=== PATIENT | female | born 1985 | race Two or more races ===

== ENCOUNTER 2023-07-07 16:56 | Emergency (ER) | payer MEDICAID, OTHER ==
[~2023-07-07] VITALS: Ht 170.2 cm; Wt 89.3 kg
[2023-07-07 17:09] VITALS: BP 138/70; TEMP 97.9
[2023-07-07 20:03] LABS: Basophils # (auto) 0 10 ^3/uL (0-0.2); Basophils % (auto) 0.4 % (0.0-2.0); Eosinophils # (auto) 0 10 ^3/uL (0-0.8); Eosinophils % (auto) 0.1 % (0.0-7.0); Hematocrit 47.5 % (36.0-46.0); Hemoglobin 15.3 g/dL (12.2-16.2); Lymphocytes # (auto) 2.2 10 ^3/uL (0.4-5.4); Lymphocytes % (auto) 21.9 % (10.0-50.0); Mean Corpuscular Hemoglobin 27.8 pg (28.0-32.0); Mean Corpuscular Hgb Conc. 32.2 g/dL (32.0-36.0); Mean Corpuscular Volume 86.6 fL (80.0-100.0); Monocytes # (auto) 0.4 10 ^3/uL (0-1.3); Monocytes % (auto) 4.1 % (0.0-12.0); Neutrophils # (auto) 7.3 10 ^3/uL (1.6-8.6); Neutrophils % (auto) 73.5 % (37.0-80.0); Nucleated Red Blood Cells % 0.1 %; Red Blood Cells 5.49 10^6/uL (4.0-5.20); Red Cell Distribution Width 17.3 % (11.8-14.3)
[2023-07-07 20:22] LABS: Alanine Aminotransferase 42 U/L (7-40); Albumin 5.2 g/dL (3.2-4.8); Alkaline Phosphatase 72 U/L (46-116); Aspartate Aminotransferase 27 U/L (13-40); BUN/Creatinine Ratio 15.8 (10.0-20.0); Blood Urea Nitrogen 12 mg/dL (9-23); Calcium 8.8 mg/dL (8.7-10.4); Carbon Dioxide 22 mmol/L (20-30); Glucose 97 mg/dL (74-106)
[2023-07-07 20:23] LABS: Bilirubin, Total 0.5 mg/dL (0.2-1.0); Total Protein 7.8 g/dL (5.7-8.2)
[2023-07-07 20:28] LABS: Anion Gap 12 (5-15); Chloride 105 mmol/L (98-107); Potassium 3.8 mmol/L (3.5-5.1); Sodium 139 mmol/L (136-145)
[2023-07-07] MEDS ORDERED: PRED20TA2 PO (21:11)
[2023-07-07] MEDS ORDERED: BENZ200C64 PO (21:11)
[2023-07-07] MEDS ORDERED: AZITTAB PO (21:11)
[2023-07-07] MEDS ORDERED: ALBUAER3 IN (21:11)
[2023-07-07 21:15] VITALS: PULSE 106
[2023-07-07] MEDS ORDERED: IPRATROPIUM BROM 0.5 MG/2.5ML INH SOL NEB ONE (21:15)
[2023-07-07] MEDS ORDERED: ALBUTEROL SULF 2.5 MG/0.5ML(0.5%) NEB SOLN NEB ONE (21:15)
[2023-07-07 21:24] VITALS: RESP 18; O2SAT 98
[2023-07-08] MEDS: DexAMETHasone SOD PHOS 10MG/1ML VIAL INJ IM ONE ×2 (00:02→00:03)
== END 2023-07-08 | disposition home or self-care (01) ==
LOC: ER 16:56
DX: J20.9 Acute bronchitis, unspecified (principal); R07.89 Other chest pain; R50.9 Fever, unspecified
CPT/HCPCS: 36415; 71045; 80053; 84484; 85025; 93005; 96372; 99285; J1100; J7644

== ENCOUNTER 2023-12-24 11:08 | Emergency (ER) | payer MEDICAID ==
[~2023-12-24] VITALS: Ht 170.2 cm; Wt 91.5 kg
[~2023-12-24 11:08] MED LIST: ALBUAER3 IN; AZITTAB PO; BENZ200C64 PO; PRED20TA2 PO
[2023-12-24 14:20] VITALS: BP 110/98; PULSE 118; RESP 20; TEMP 98.4; O2SAT 94
[2023-12-24] MEDS ORDERED: ACET-1882 PO (14:40)
[2023-12-24] MEDS ORDERED: DEXT1SYP9 GT (14:40)
[2023-12-24] MEDS ORDERED: ALBU108A5 IN (14:40)
== END 2023-12-24 14:37 | disposition home or self-care (01) ==
LOC: ER 11:08
DX: O26.892 Other specified pregnancy related conditions, second trimester (principal); J20.9 Acute bronchitis, unspecified; Z3A.17 17 weeks gestation of pregnancy